=== PATIENT | male | born 1960 | race Caucasian/White ===

== ENCOUNTER 2020-08-13 18:15 | Emergency (ER) | payer SELFPAY ==
[~2020-08-13] VITALS: Ht 175.3 cm; Wt 111.1 kg
[2020-08-13] MEDS ORDERED: ACETAMINOPHEN 500 MG TAB (TYLENOL) ONE (18:46)
[2020-08-13] MEDS ORDERED: ACETAMINOPHEN 500 MG TAB (TYLENOL) PO ONE (19:00)
--- NOTE | 2020-08-13 19:07 | ED Respiratory ---
General Chief Complaint: Cough/Cold/Flu Symptoms Stated Complaint: DIZZINESS, LEG PAIN, BODY ACHE, SORE THROAT Nursing Triage Note: PT ARRIVED BY PRIVATE VEHICLE WITH CHIEF COMPLAITN OF LIGHTHEADEDNESS AND LEG PAIN. PT WAS ALERT, ORIENTED X 4 AND AMBULATORY. PT STATED ONSET WAS 4-5 DAYS AGO. PT HAS HAD LIGHTHEADED, LEG PAIN 3/4 DAYS, GENERALIZED ACHING, DRY COUGH. PT'S VITALS WERE TAKEN ON ARRIVAL. COVID SWAB WAS OBTAINED. PT DENIES SMOKING ALCOHOL OR DRUG USE. PT TAKES LISINIPRIL, PLAVIX, IBUPROFEN, AND TYLENOL. PT HAS PMH OF 2 HEART ATTTACKS, BILATERAL CARPAL TUNNEL. DENIES ALLERGIES. REPORT GIVEN TO PROVIDER. Source: patient Exam Limitations: no limitations History of Present Illness Date Seen by Provider: Aug 13, 2020 Time Seen by Provider: 18:40 Initial Comments This is a 59-year-old male presents to the ER with complaints of feeling lightheaded, generalized body aches more so in his bilateral lower extremities, sore throat, productive cough for the past 4 to 5 days. States that he has been feeling "like crap" for the past week. Allergies and Home Medications Allergies Coded Allergies: No Known Drug Allergies (Unverified , 08/13/20) Past Znyhthn-Ihfscb-Puivmp Hx Patient Social History Tobacco Use?: No Substance use?: No Alcohol Use?: No Pt feels they are or have been: No Physical Exam Vital Signs - First Documented 08/13/20 18:37 Temp 38.2 Pulse 74 Resp 18 B/P (MAP) 140/83 (102) Pulse Ox 96 O2 Delivery Room Air Capillary Refill : Less Than 3 Seconds Height: '" Weight: lbs. oz. kg; 36.00 BMI Method: Progress/Results/Core Measures Suspected Sepsis SIRS Temperature: Pulse: 74 Respiratory Rate: 18 Blood Pressure 140 /83 Mean: 102 Results/Orders Lab Results Laboratory Tests Test 08/13/20 18:43 Range/Units Influenza Type A (RT-PCR) Not Detected Not Detecte Influenza Type B (RT-PCR) Not Detected Not Detecte SARS-CoV-2 RNA (RT-PCR) Detected H Not Detecte My Orders Orders - ISABELL GREENWOOD APRN Acetaminophen Tablet (Tylenol Tablet) (08/13/20 19:00) Covid 19 Inhouse Test (08/13/20 18:47) Influenza A And B By Pcr (08/13/20 18:47) Acetaminophen Tablet (Tylenol Tablet) (08/13/20 18:46) Medications Given in ED Current Medications Medications Dose Ordered Sig/Cristobal Route Start Time Stop Time Status Last Admin Dose Admin Acetaminophen 1,000 mg ONCE ONCE PO 08/13/20 19:00 08/13/20 19:01 DC 08/13/20 18:49 1,000 MG Vital Signs/I&O 08/13/20 18:37 Temp 38.2 Pulse 74 Resp 18 B/P (MAP) 140/83 (102) Pulse Ox 96 O2 Delivery Room Air Capillary Refill : Less Than 3 Seconds Blood Pressure Mean: 102 Departure Impression Primary Impression: COVID-19 Disposition: 01 HOME, SELF-CARE Condition: Stable Departure-Patient Inst. Decision time for Depature: 19:45 Patient Instructions: COVID-19 ED Add. Discharge Instructions: Plan: 1. Take Steroids and Antibiotics as directed and complete full course. 2. Isolate at home until you are released by [facility]. 3. Drink plenty of fluids. Use Inhaler every 4 hours as needed for shortness of breath. 4. Return for any new, concerning, or worsening symptoms. All discharge instructions reviewed with patient and/or family. Voiced understanding. Scripts Methylprednisolone (Methylprednisolone Dose Pack) 4 Mg Tab.ds.pk 4 MG PO UD for 6 Days, #21 PKG PER DOSE PACK INSTRUCTIONS Prov: ISABELL GREENWOOD PRODUCTION CLERK 08/13/20 Albuterol Sulfate (Ventolin Hfa) 18 Gm Hfa.aer.ad 2 PUFF INH Q4H PRN for SHORTNESS OF BREATH, #1 INHALER 0 Refills Prov: ISABELL GREENWOOD PRODUCTION CLERK 08/13/20 Azithromycin (Azithromycin) 250 Mg Tablet 250 MG PO DAILY, #4 TAB 0 Refills Prov: ISABELL GREENWOOD PRODUCTION CLERK 08/13/20 ISABELL GREENWOOD PRODUCTION CLERK Aug 13, 2020 19:07
[2020-08-13] MEDS ORDERED: METH4TAB10 PO (19:49)
[2020-08-13] MEDS ORDERED: ALBU18HF2 INH (19:49)
[2020-08-13] MEDS ORDERED: AZIT250T12 PO (19:49)
[2020-08-13] MEDS ORDERED: AZITHROMYCIN 250 MG TAB (ZITHROMAX) PO ONE (20:00)
[2020-08-13 20:30] VITALS: BP 117/62
== END 2020-08-13 20:30 | disposition home or self-care (01) ==
LOC: EDUNIT# 18:15 → ER 18:19
DX: U07.1 COVID-19 (principal)
CPT/HCPCS: 87636; 99283

== ENCOUNTER 2020-09-22 14:09 | Emergency (ER) | payer OTHER ==
[~2020-09-22] VITALS: Ht 175 cm; Wt 111.1 kg
[~2020-09-22 14:09] MED LIST: ALBU18HF2 INH; AZIT250T12 PO; METH4TAB10 PO
[2020-09-22 14:57] LABS: BASOPHILS % (AUTO) 0 % (0-10); EOSINOPHILS % (AUTO) 0 % (0-10); HEMATOCRIT 40 % (40-54); HEMOGLOBIN 13.8 g/dL (13.3-17.7); LYMPHOCYTES # (AUTO) 0.5 10^3/uL (1.0-4.0); LYMPHOCYTES % (AUTO) 4 % (12-44); MEAN CORPUSCULAR HEMOGLOBIN 31 pg (25-34); MEAN CORPUSCULAR HGB CONC 35 g/dL (32-36); MEAN CORPUSCULAR VOLUME 90 fL (80-99); MONOCYTES # (AUTO) 0.3 10^3/uL (0.0-1.0); MONOCYTES % (AUTO) 2 % (0-12); NEUTROPHILS # (AUTO) 13.8 10^3/uL (1.8-7.8); NEUTROPHILS % (AUTO) 94 % (42-75); PLATELET COUNT 232 10^3/uL (130-400); WHITE BLOOD COUNT 14.7 10^3/uL (4.3-11.0)
--- NOTE | 2020-09-22 14:58 | ED General ---
General Chief Complaint: Dizziness/Syncope Stated Complaint: DIZZINESS Nursing Triage Note: Patient ambulatory to ER with c/o feeling lightheaded and feeling like passing out within the last several weeks. Pt states he also has had leg cramps and today had a sweating episode. he has been see spots in his eyes with these episodes. He checked his blood pressure today while he was having this episode and it was 90 systolic. Source of Information: Patient Exam Limitations: No Limitations (NASIM GOMES STUDENT) History of Present Illness Date Seen by Provider: Sep 22, 2020 Time Seen by Provider: 14:30 Initial Comments Pt presents to ED via private conveyance with complaints of lightheadedness/seeing spots. He states that at about 10AM this morning, he felt like he was going to faint and was seeing spots for about 30min-1hr. He has a history of 2x CO and reports having [address] He also experienced pain extending from his lower back and down his legs during the episode. He was also nauseated w/o vomiting. He denies having any chest pain or SOB at time of exam and during the episode of lightheadedness. He last ate/drank an hour prior to arrival. Timing/Duration: 4-6 Hours Severity: Moderate Associated Systoms: No Chest Pain, No Cough, No Fever/Chills, No Headaches; Nausea/Vomiting (nausea w/o vomiting); No Shortness of Air (NASIM GOMES [facility]) Initial Comments Patient states his symptoms happened about 10-11 o'clock this morning while he was making spaghetti at his dnfbga-xj-gvv's house. He said he was sitting in the kitchen on a chair when he stood up and started feeling the symptoms. He says his father had a significant history of abdominal aortic aneurysm which he succumbed to from a dissection at age 89 earlier this year. Patient states because of his strong history of coronary disease he went and had ultrasounds of his abdominal aorta and iliacs earlier this year which were normal. He is still having about a 4-5 out of 10 discomfort and numbness but does not want anything for the pain at this time. (LOLY ROLLE) Allergies and Home Medications Allergies Coded Allergies: No Known Drug Allergies (Unverified , 08/13/20) Home Medications Albuterol Sulfate 18 Gm Hfa.aer.ad, 2 PUFF INH Q4H PRN for SHORTNESS OF BREATH Prescribed by: ISABELL GREENWOOD on 08/13/201948 Azithromycin 250 Mg Tablet, 250 MG PO DAILY Prescribed by: ISABELL GREENWOOD on 08/13/201948 Methylprednisolone 4 Mg Tab.ds.pk, 4 MG PO UD PER DOSE PACK INSTRUCTIONS Prescribed by: ISABELL GREENWOOD on 08/13/201948 Patient Home Medication List Home Medication List Reviewed: Yes (NASIM GOMES) Review of Systems Review of Systems Constitutional: No chills; dizziness; No fever EENTM: hearing loss, other (pt states seeing spots during episode of lightheadedness) Respiratory: No cough, No hemoptysis, No short of breath Cardiovascular: No chest pain, No edema Gastrointestinal: No abdominal pain, No constipation, No diarrhea Genitourinary: No dysuria, No frequency, No hematuria Musculoskeletal: No back pain, No joint pain Skin: No change in color, No change in hair/nails Psychiatric/Neurological: Denies Headache; Weakness (reports weakness of LUE), Other (numbness/tingling/pain BLE) (NASIM GOMES) All Other Systems Reviewed Negative Unless Noted: Yes (NASIM GOMES) Past Kpqilth-Qxdcga-Wsgcqu Hx Patient Social History Tobacco Use?: No Smoking Status: Never a Smoker Smokeless Tobacco Frequency: Never a User Use of E-Cig and/or Vaping dev: No Use of E-Cig and/or Vaping Jeevan: Never a User Substance use?: No Alcohol Use?: No Pt feels they are or have been: No (NASIM GOMES) Immunizations Up To Date Influenza Vaccine Up-to-Date: No; Not Current (NASIM GOMES) Past Medical History Surgery/Hospitalization HX: 14 cardiac stents due to CO history (NASIM GOMES) Physical Exam Vital Signs Vital Signs - First Documented 09/22/20 14:14 Temp 37.0 Pulse 80 Resp 16 B/P (MAP) 132/69 (90) Pulse Ox 97 O2 Delivery Room Air (LOLY ROLLE) Vital Signs Capillary Refill : Less Than 3 Seconds (NASIM GOMES) Height, Weight, BMI Height: '" Weight: lbs. oz. kg; 36.00 BMI Method: General Appearance: No Apparent Distress, WD/WN Eyes: Bilateral Eye Normal Inspection, Bilateral Eye PERRL, Bilateral Eye EOMI HEENT: PERRL/EOMI, Normal ENT Inspection, Pharynx Normal Neck: Full Range of Motion, Normal Inspection, Non Tender, Supple Respiratory: Chest Non Tender, Lungs Clear, Normal Breath Sounds, No Accessory Muscle Use, No Respiratory Distress Cardiovascular: Regular Rate, Rhythm, No Edema, Normal Peripheral Pulses, Sy stolic Murmur Gastrointestinal: Normal Bowel Sounds, Non Tender, Soft Rectal: Deferred Back: Normal Inspection, No CVA Tenderness, No Vertebral Tenderness Extremity: Normal Capillary Refill, Normal Inspection, Normal Range of Motion, Other Neurologic/Psychiatric: Alert, Oriented x3, Normal Mood/Affect, Motor Weakness (1/4 motor strength LUE), Sensory Deficit (BLE numbness/tingling) Skin: Normal Color, Warm/Dry Lymphatic: No Adenopathy (NASIM GOMES [facility] STUDENT) Progress/Results/Core Measures Suspected Sepsis SIRS Temperature: Pulse: 80 Respiratory Rate: 16 Blood Pressure 132 /69 Mean: 90 (NASIM GOMES STUDENT) Results/Orders Lab Results Laboratory Tests Test 09/22/20 14:24 09/22/20 16:30 Range/Units White Blood Count 14.7 H 4.3-11.0 10^3/uL Red Blood Count 4.39 4.30-5.52 10^6/uL Hemoglobin 13.8 13.3-17.7 g/dL Hematocrit 40 40-54 % Mean Corpuscular Volume 90 80-99 fL Mean Corpuscular Hemoglobin 31 25-34 pg Mean Corpuscular Hemoglobin Concent 35 32-36 g/dL Red Cell Distribution Width 12.2 10.0-14.5 % Platelet Count 232 130-400 10^3/uL Mean Platelet Volume 10.0 9.0-12.2 fL Immature Granulocyte % (Auto) 0 % Neutrophils (%) (Auto) 94 H 42-75 % Lymphocytes (%) (Auto) 4 L 12-44 % Monocytes (%) (Auto) 2 0-12 % Eosinophils (%) (Auto) 0 0-10 % Basophils (%) (Auto) 0 0-10 % Neutrophils # (Auto) 13.8 H 1.8-7.8 10^3/uL Lymphocytes # (Auto) 0.5 L 1.0-4.0 10^3/uL Monocytes # (Auto) 0.3 0.0-1.0 10^3/uL Eosinophils # (Auto) 0.0 0.0-0.3 10^3/uL Basophils # (Auto) 0.0 0.0-0.1 10^3/uL Immature Granulocyte # (Auto) 0.1 0.0-0.1 10^3/uL Neutrophils % (Manual) 92 % Lymphocytes % (Manual) 4 % Monocytes % (Manual) 2 % Band Neutrophils 2 % Blood Morphology Comment NORMAL Sodium Level 138 135-145 MMOL/L Potassium Level 4.2 3.6-5.0 MMOL/L Chloride Level 104 98-107 MMOL/L Carbon Dioxide Level 29 21-32 MMOL/L Anion Gap 5 5-14 MMOL/L Blood Urea Nitrogen 15 7-18 MG/DL Creatinine 1.07 0.60-1.30 MG/DL Estimat Glomerular Filtration Rate 71 BUN/Creatinine Ratio 14 Glucose Level 110 H 70-105 MG/DL Calcium Level 9.2 8.5-10.1 MG/DL Corrected Calcium 9.3 8.5-10.1 MG/DL Total Bilirubin 1.1 H 0.1-1.0 MG/DL Aspartate Amino Transf (AST/SGOT) 22 5-34 U/L Alanine Aminotransferase (ALT/SGPT) 16 0-55 U/L Alkaline Phosphatase 45 40-136 U/L Troponin I < 0.028 <0.028 NG/ML C-Reactive Protein High Sensitivity 0.20 0.00-0.50 MG/DL B-Type Natriuretic Peptide 35.5 <100.0 PG/ML Total Protein 6.7 6.4-8.2 GM/DL Albumin 3.9 3.2-4.5 GM/DL Urine Color YELLOW Urine Clarity CLEAR Urine pH 6.0 5-9 Urine Specific Fields 1.015 L 1.016-1.022 Urine Protein NEGATIVE NEGATIVE Urine Glucose (UA) NEGATIVE NEGATIVE Urine Ketones NEGATIVE NEGATIVE Urine Nitrite NEGATIVE NEGATIVE Urine Bilirubin NEGATIVE NEGATIVE Urine Urobilinogen 1.0 < = 1.0 MG/DL Urine Leukocyte Esterase NEGATIVE NEGATIVE Urine RBC (Auto) NEGATIVE NEGATIVE Urine RBC NONE /HPF Urine WBC 0-2 /HPF Urine Crystals PRESENT H /LPF Urine Amorphous Sediment RARE GABRIELA URATES H /LPF Urine Bacteria TRACE /HPF Urine Casts NONE /LPF Urine Mucus MODERATE H /LPF Urine Culture Indicated NO (LOLY ROLLE) My Orders Orders - LOLY ROLLE Orthostatic Vital Signs (Adult (09/22/20 14:50) Cbc With Automated Diff (09/22/20 14:50) Comprehensive Metabolic Panel (09/22/20 14:50) Hs C Reactive Protein (09/22/20 14:50) Ua Culture If Indicated (09/22/20 14:50) Troponin I (09/22/20 14:50) Ekg Tracing (09/22/20 14:50) Continuous Ekg Monitoring (09/22/20 14:50) BNP (09/22/20 14:50) Ed Iv/Invasive Line Start (09/22/20 14:50) Ns Iv 500 Ml (Sodium Chloride 0.9%) (09/22/20 15:00) Manual Differential (09/22/20 14:24) Ct Angio Chst/Abd/Pelv W (09/22/20 15:04) Iohexol Injection (Omnipaque 350 Mg/Ml 1 (09/22/20 15:15) Received Contrast (Hold Metformin- Contr (09/22/20 15:15) Ns (Ivpb) (Sodium Chloride 0.9% Ivpb Bag (09/22/20 15:15) Sodium Chloride Flush (Catheter Flush Sy (09/22/20 15:15) Ekg Tracing (09/22/20 15:23) (LOLY ROLLE) Medications Given in ED Current Medications Medications Dose Ordered Sig/Cristobal Route Start Time Stop Time Status Last Admin Dose Admin Iohexol 100 ml ONCE ONCE IV 09/22/20 15:15 09/22/20 15:16 DC 09/22/20 15:42 100 ML Sodium Chloride 10 ml NEEDED PRN IV 09/22/20 15:15 09/22/20 17:29 DC 09/22/20 15:42 10 ML Sodium Chloride 100 ml ONCE ONCE IV 09/22/20 15:15 09/22/20 15:16 DC 09/22/20 15:42 80 ML Sodium Chloride 500 ml @ 0 mls/hr Q0M ONCE IV 09/22/20 15:00 09/22/20 15:01 DC 8/16/21 15:09 1,000 MLS/HR (LOLY ROLLE) Vital Signs/I&O 09/22/20 09/22/20 09/22/20 14:14 15:03 17:18 Temp 37.0 37.0 Pulse 80 77 82 86 92 Resp 16 16 B/P (MAP) 132/69 (90) 128/70 (89) 127/66 112/59 (76) 129/64 (85) Pulse Ox 97 97 O2 Delivery Room Air Room Air (LOLY ROLLE) Vital Signs/I&O Capillary Refill : Less Than 3 Seconds (NASIM GOMES MED STUDENT) Blood Pressure Mean: 90 Progress Note #1: Time: 15:17 Progress Note Plan an angiogram of his thoracic abdominal aorta down to the iliacs. Were doing a syncope work-up. He has some high risk features including his history of coronary disease. He states he is taking the Plavix as prescribed. He has 1+ pulses bilateral symmetric with warm feet and capillary refill is less than 3 seconds. I attest that I saw this patient alongside the medical student and agree with his documented history, physical exam and review of systems except as otherwise noted. Progress Note #2: Time: 16:06 Progress Note 4 points Mcminn Syncope Risk Score; High risk. 12.9% risk of 30-day serious adverse event. Heterogenous mass arising from the lower 3rd of the left kidney. Patient lives over [facility] and has a primary care provider in [place]. We have offered him follow-up with our local urologist or he may seek a closer line by contacting his primary care provider. Discussed the case with Dr. Harrison, cardiology and he recommends at this time and outpatient follow-up with his mower mechanic within the next week. (LOLY ROLLE) ECG Initial ECG Impression Date: Sep 22, 2020 Initial ECG Impression Time: 14:20 Initial ECG Rate: 81 Initial ECG Rhythm: Normal Sinus Initial ECG Intervals: QT (466) Initial ECG Impression: Normal, Nonspecific Changes Comment Normal sinus rhythm without clinically relevant ST changes. Right bundle branch block. EKG : EKG Time: 15:46 Rate: 80 Rhythm: Normal Sinus Intervals: QT (471) ECG Comparisson: Unchanged ECG Impression: Normal (LOLY ROLLE) Diagnostic Imaging Diagonstic Imaging: CT Plain Films/CT/US/NM/MRI: chest, abdomen, pelvis Comments [facility]. [place], [place] NAME: LUCITA LEE [facility] REC#: [id number] PT STATUS: REG ER : 1960 PHYSICIAN: LOLY ROLLE MD ADMIT DATE: 09/22/20/ER Signed Date of Exam:09/22/20 CT ANGIO CHST/ABD/PELV W EXAMINATION: CT angiography of the chest, CT of the abdomen and pelvis. TECHNIQUE: Contrast enhanced thin section helical images were obtained through the chest, abdomen and pelvis with intravenous contrast timed for the optimal opacification of the arterial structures of the chest per CTA protocol. Post-processing, reconstructions and interpretation of angiographic images of the vessels was performed. 3D MIP reconstructions were performed and reviewed. All CT scans use one or more of the following dose optimizing techniques: automated exposure control, MA and/or KvP adjustment based on a patient size and exam type, or iterative reconstruction. HISTORY: Hypotension, lightheadedness. COMPARISON: None available. FINDINGS: Vascular: The thoracic aorta is normal in caliber without aneurysm, dissection, or significant stenosis. No filling defects are seen within the visualized pulmonary arteries. Thyroid: The thyroid is normal. Mediastinum: Heart size is normal without significant pericardial effusion. No suspicious lymphadenopathy. Lungs and airways: The lungs are clear without consolidation, pleural effusion, or pneumothorax. Atelectasis within the dependent lungs. The airways are normal. Solid organs: The liver is normal without focal lesion. The gallbladder is normal. There is no biliary ductal dilation. Pancreas is normal. Spleen is normal. Adrenal glands are normal. There is an enhancing 5.4 x 5.1 cm mass arising from the left kidney. There is no hydronephrosis. Bowel: The stomach and small bowel are normal without obstruction. The colon and appendix are normal. Peritoneum: There is no intraperitoneal free fluid or free air. No suspicious lymphadenopathy. Vasculature: The abdominal aorta is normal in caliber without aneurysm, dissection, or stenosis. Origins of the celiac, SMA, renal arteries, and ELZA are patent. Musculoskeletal: Degenerative changes of the spine without suspicious osseous lesion or compression fracture. Pelvis: The prostate gland is normal. The urinary bladder is normal. IMPRESSION: 1. Unremarkable appearance of the thoracic and abdominal aorta without aneurysm, dissection, or stenosis. 2. Enhancing 5.4 cm mass arising from the left kidney, concerning for renal neoplasm. Dictated by: Dictated on workstation # [id number] Dict: 09/22/20 1553 Trans: 09/22/20 1604 [id number] [id number] Interpreted by: TAYE REYNOSO DO Electronically signed by: TAYE REYNOSO DO 09/22/20 1604 Reviewed: Reviewed by Me (LOLY ROLLE) Departure Impression Primary Impression: Syncope, near Additional Impression: Left kidney mass Disposition: HOME, SELF-CARE Condition: Stable Departure-Patient Inst. Decision time for Depature: 17:01 (LOLY ROLLE) Referrals: NO,LOCAL PHYSICIAN (PCP) Primary Care Physician LEONARDO CHOI MD Patient Instructions: Near Fainting (DC) Add. Discharge Instructions: I recommend you call your mower mechanic and request follow-up within the next 1 week for your near syncopal episodes. I recommend you follow-up either with the urologist or call your primary care doctor for referral to a urologist to manage working up this incidental mass seen on your left kidney. If you wish to follow-up locally with Dr. Choi, urology then call his clinic for an appointment. All discharge instructions reviewed with patient and/or family. Voiced understanding. Work/School Note: Work Release Form Date Seen in the Emergency Department: Sep 22, 2020 Return to Work: Sep 23, 2020 Restrictions: No Restrictions Copy Copies To 1: [facility] Sep 22, 2020 14:58 LOLY ROLLE Sep 22, 2020 15:19
[2020-09-22] MEDS ORDERED: NS IV 500 ML 500 ML IV ONE (15:00)
[2020-09-22 15:03] VITALS: BP_SYST 112; BP_SYST 128; BP_SYST 129; BP_DIAS 59; BP_DIAS 64; BP_DIAS 70
[2020-09-22 15:05] LABS: ALBUMIN 3.9 GM/DL (3.2-4.5); CHLORIDE 104 MMOL/L (98-107); POTASSIUM 4.2 MMOL/L (3.6-5.0); SODIUM 138 MMOL/L (135-145)
[2020-09-22 15:07] LABS: CALCIUM 9.2 MG/DL (8.5-10.1)
[2020-09-22 15:08] LABS: GLUCOSE 110 MG/DL (70-105); TOTAL PROTEIN 6.7 GM/DL (6.4-8.2)
[2020-09-22 15:09] LABS: CARBON DIOXIDE 29 MMOL/L (21-32)
[2020-09-22 15:10] LABS: BILIRUBIN,TOTAL 1.1 MG/DL (0.1-1.0)
[2020-09-22 15:11] LABS: ALKALINE PHOSPHATASE 45 U/L (40-136); CREATININE SERUM 1.07 MG/DL (0.60-1.30); GFR ESTIMATED 71
[2020-09-22 15:13] LABS: BUN/CREATININE RATIO 14
[2020-09-22 15:14] LABS: ALANINE AMINOTRANSFERASE 16 U/L (0-55)
[2020-09-22] MEDS ORDERED: IOHEXOL 350 MG/ML 100 ML (OMNIPAQUE 350) VIAL IV ONE (15:15)
[2020-09-22] MEDS ORDERED: NS 100 ML (IVPB) BAG IV ONE (15:15)
[2020-09-22] MEDS ORDERED: CATHETER FLUSH 10 ML SYR IV PRN (15:15)
[2020-09-22] MEDS ORDERED: HOLD METFORMIN - RECEIVED CONTRAST 20 ML VIAL IV SCH (15:15)
[2020-09-22 15:31] LABS: BAND NEUTROPHILS 2 %; LYMPHOCYTES % (MANUAL) 4 %; MONOCYTES % (MANUAL) 2 %; NEUTROPHILS % (MANUAL) 92 %; RBC MORPH NORMAL
--- NOTE | 2020-09-22 16:02 | Diagnostic Imaging Report ---
EXAMINATION: CT angiography of the chest, CT of the abdomen and pelvis. TECHNIQUE: Contrast enhanced thin section helical images were obtained through the chest, abdomen and pelvis with intravenous contrast timed for the optimal opacification of the arterial structures of the chest per CTA protocol. Post-processing, reconstructions and interpretation of angiographic images of the vessels was performed. 3D MIP reconstructions were performed and reviewed. All CT scans use one or more of the following dose optimizing techniques: automated exposure control, MA and/or KvP adjustment based on a patient size and exam type, or iterative reconstruction. HISTORY: Hypotension, lightheadedness. COMPARISON: None available. FINDINGS: Vascular: The thoracic aorta is normal in caliber without aneurysm, dissection, or significant stenosis. No filling defects are seen within the visualized pulmonary arteries. Thyroid: The thyroid is normal. Mediastinum: Heart size is normal without significant pericardial effusion. No suspicious lymphadenopathy. Lungs and airways: The lungs are clear without consolidation, pleural effusion, or pneumothorax. Atelectasis within the dependent lungs. The airways are normal. Solid organs: The liver is normal without focal lesion. The gallbladder is normal. There is no biliary ductal dilation. Pancreas is normal. Spleen is normal. Adrenal glands are normal. There is an enhancing 5.4 x 5.1 cm mass arising from the left kidney. There is no hydronephrosis. Bowel: The stomach and small bowel are normal without obstruction. The colon and appendix are normal. Peritoneum: There is no intraperitoneal free fluid or free air. No suspicious lymphadenopathy. Vasculature: The abdominal aorta is normal in caliber without aneurysm, dissection, or stenosis. Origins of the celiac, SMA, renal arteries, and ELZA are patent. Musculoskeletal: Degenerative changes of the spine without suspicious osseous lesion or compression fracture. Pelvis: The prostate gland is normal. The urinary bladder is normal. IMPRESSION: 1. Unremarkable appearance of the thoracic and abdominal aorta without aneurysm, dissection, or stenosis. 2. Enhancing 5.4 cm mass arising from the left kidney, concerning for renal neoplasm. Dictated by: Dictated on workstation # [id number]
[2020-09-22 16:35] LABS: BILIRUBIN,URINE NEGATIVE (NEGATIVE); CLARITY,URINE CLEAR; COLOR,URINE YELLOW; GLUCOSE, URINE (UA) NEGATIVE (NEGATIVE); KETONES,URINE NEGATIVE (NEGATIVE); LEUKOCYTE ESTERASE ,URINE NEGATIVE (NEGATIVE); NITRITE,URINE NEGATIVE (NEGATIVE); PROTEIN,URINE NEGATIVE (NEGATIVE)
[2020-09-22 16:48] LABS: AMORPHOUS SEDIMENT,UR RARE AMOR URATES /LPF; BACTERIA,URINE TRACE /HPF; WBC,URINE 0-2 /HPF
[2020-09-22 17:18] VITALS: BP 127/66
== END 2020-09-22 17:20 | disposition home or self-care (01) ==
LOC: EDUNIT# 14:09 → ER 14:12
DX: R55 Syncope and collapse (principal); N28.89 Other specified disorders of kidney and ureter; I25.2 Old myocardial infarction; Z95.5 Presence of coronary angioplasty implant and graft; Z79.52 Long term (current) use of systemic steroids
CPT/HCPCS: 36415; 71275; 74174; 80053; 81000; 83880; 84484; 85007; 85027; 86141; 93005